=== PATIENT | female | born 2000 | race Caucasian/White ===

== ENCOUNTER → 2024-10-24 13:38 | Outpatient (REF) | payer BC, SELFPAY | LOC: DHSLP 13:38 | PROVIDERS: ATTENDING PHYSICIAN Internal Medicine; FAMILY PHYSICIAN Physician Assistant Medical | DX: G47.33 Obstructive sleep apnea (adult) (pediatric) (principal) | CPT/HCPCS: 95800 ==

== ENCOUNTER → 2024-12-28 07:11 | Outpatient (REF) | payer BC, SELFPAY | LOC: MRI 07:11 | PROVIDERS: ATTENDING PHYSICIAN Physician Assistant Medical | DX: R29.898 Other symptoms and signs involving the musculoskeletal system (principal); R20.0 Anesthesia of skin; M54.50 Low back pain, unspecified | CPT/HCPCS: 72148 ==